=== PATIENT | male | born 1965 | race African-American/Black ===

== ENCOUNTER 2018-01-24 01:38 | Emergency (ER) | payer OTHER ==
--- NOTE | 2018-01-24 02:08 | PDOC ---
History of Present Illness - General History Source: Patient, Parent(s) (Mother) Exam Limitations: No Limitations - History of Present Illness Initial Comments: 01/24/18 03:45 The patient is a 52 year old male, with a significant past medical history of Pre-Diabetes, Cardiac Disorder, HTN who presents to the emergency department seen immediately upon arrival with worsening SOB and LLE edema for the past 4 days. Patient reports SOB has worsened today and is unable to lay flat. Patient also notes LLE edema for the past 2 days. Patient is a daily smoker and is mostly sedentary. Patient denies recent travel, recent surgeries, hx of PE or DVT in the past or family hx of blood clotting disorders. Note, patient reports recent cold that he is recovering from. Patient has not seen his PCP in 2 years. Upon evaluation, patient's vital signs significant for 123 HR. Patient denies headache or dizziness. Patient denies fever, chills, abdominal pain, nausea, vomit, diarrhea or constipation. Patient denies dysuria, frequency, urgency or hematuria. Patient denies sick contacts Allergies: NKA Past surgical history: None Social history: Current everyday smoker PCP: None <Penny Pete - Last Filed: 01/24/18 06:25> <Graciela Lowe - Last Filed: 01/24/18 07:31> - General Chief Complaint: Shortness of Breath Stated Complaint: SWELLING LT SIDE,SOB Time Seen by Provider: 01/24/18 02:07 Past History <Penny Pete - Last Filed: 01/24/18 06:25> - Past Medical History Cardiac Disorders: Yes (2 DAMAGED VALVES. ABN HEART SOUNDS) CHF: Yes Diabetes: Yes (borderline) HTN: Yes - Immunization History Immunization Up to Date: Yes - Suicide/Smoking/Psychosocial Hx Smoking Status: No Smoking History: Current every day smoker Number of Cigarettes Smoked Daily: 3 'Breaking Loose' booklet given: 06/02/15 Hx Alcohol Use: Yes (now and then) Drug/Substance Use Hx: No Substance Use Type: None <Graciela Lowe - Last Filed: 01/24/18 07:31> - Past Medical History Allergies/Adverse Reactions: Allergies Allergy/AdvReac Type Severity Reaction Status Date / Time No Known Allergies Allergy Verified 01/24/18 02:41 Home Medications: Ambulatory Orders NK [No Known Home Medication] 01/24/18 Review of Systems - Review of Systems Able to Perform ROS?: Yes Comments:: 01/24/18 03:45 CONSTITUTIONAL: Absent: fever, no chills, no fatigue EYES: Absent: visual changes ENT: Absent: ear pain, no sore throat CARDIOVASCULAR: Absent: chest pain, no palpitations RESPIRATORY: +SOB Absent: cough GI: Absent: abdominal pain, no nausea, no vomiting, no constipation, no diarrhea GENITOURINARY: Absent: dysuria, no frequency, no hematuria MUSCULOSKELETAL: +LLE edema. Absent: back pain, no arthralgia, no myalgia SKIN: Absent: rash NEURO: Absent: headache <Penny Pete - Last Filed: 01/24/18 06:25> *Physical Exam - Vital Signs Last Vital Signs Temp Pulse Resp BP Pulse Ox 97.4 F L 123 H 18 154/81 96 01/24/18 01:50 01/24/18 01:50 01/24/18 01:50 01/24/18 01:50 01/24/18 01:50 <Penny Pete - Last Filed: 01/24/18 06:25> - Physical Exam General Appearance: Yes: Nourished, Appropriately Dressed, Apparent Distress ( mild respiratory distress) HEENT: positive: SASHA, Normal Voice, Symmetrical Neck: positive: Trachea midline Respiratory/Chest: positive: Lungs Clear. negative: Chest Tender, Crackles, Rales, Rhonchi, Wheezing Cardiovascular: positive: Regular Rhythm, Tachycardia Gastrointestinal/Abdominal: positive: Normal Bowel Sounds, Soft Musculoskeletal: positive: Normal Inspection Extremity: positive: Swelling, Calf Tenderness, Other (+ swelling to L calf, 3cm greater circumference than R calf). negative: Erythema Neurologic: positive: Fully Oriented, Alert <Graciela Lowe - Last Filed: 01/24/18 07:31> ED Treatment Course - LABORATORY CBC & Chemistry Diagram: 01/24/18 02:10 01/24/18 02:10 - ADDITIONAL ORDERS Additional order review: Laboratory Results 01/24/18 01/24/18 01/24/18 02:10 02:10 02:10 PT with INR INR PTT (Actin FS) VBG pH 7.42 POC VBG pCO2 37.2 L POC VBG pO2 44.1 Mixed VBG HCO3 23.6 Sodium Cancelled 138 Potassium Cancelled 4.4 Chloride Cancelled 104 Carbon Dioxide Cancelled 26 Anion Gap Cancelled 8 BUN Cancelled 21 H Creatinine Cancelled 1.5 H D Creat Clearance w eGFR Cancelled 49.54 Random Glucose Cancelled 272 H D Calcium Cancelled 8.3 L Total Bilirubin Cancelled 0.8 AST Cancelled 16 ALT Cancelled 20 Alkaline Phosphatase Cancelled 113 Creatine Kinase 311 H Creatine Kinase Index 0.8 CK-MB (CK-2) 2.594 Troponin I 0.04 B-Natriuretic Peptide 2261.77 H Total Protein Cancelled 7.4 Albumin Cancelled 3.2 L 01/24/18 02:10 PT with INR 14.40 H INR 1.27 H PTT (Actin FS) 29.7 VBG pH POC VBG pCO2 POC VBG pO2 Mixed VBG HCO3 Sodium Potassium Chloride Carbon Dioxide Anion Gap BUN Creatinine Creat Clearance w eGFR Random Glucose Calcium Total Bilirubin AST ALT Alkaline Phosphatase Creatine Kinase Creatine Kinase Index CK-MB (CK-2) Troponin I B-Natriuretic Peptide Total Protein Albumin 01/24/18 02:10 RBC 3.84 L MCV 81.0 MCHC 32.4 RDW 15.8 D MPV 8.2 Neutrophils % 63.2 Lymphocytes % 27.2 Monocytes % 8.7 Eosinophils % 0.5 Basophils % 0.4 - Medications Given in the ED: ED Medications Discontinued Medications Generic Name Dose Route Start Last Admin Trade Name Freq PRN Reason Stop Dose Admin Enoxaparin Sodium 100 mg 01/24/18 02:10 01/24/18 03:33 Lovenox - SQ 01/24/18 02:11 Not Given ONCE ONE <Penny Pete - Last Filed: 01/24/18 06:25> - LABORATORY CBC & Chemistry Diagram: 01/24/18 02:10 01/24/18 02:10 <Graciela Lowe - Last Filed: 01/24/18 07:31> Medical Decision Making - Medical Decision Making 01/24/18 06:16 CT Chest Report from [facility] Referring Physician: CARI BARON Patient Name: ERASMO ANGEL THIS IS A PRELIMINARY REPORT FROM [facility] DATE OF SERVICE: 2018-01-24 03:05:10 IMAGES: [id number] EXAM: CTA CHEST Bilateral ground glass and nodular densities, correlate clinically for atypical infection and advise followup after treatment. Largest nodule 8 mm in right lower lobe. No pulmonary embolism. No aortic dissection or aneurysm. No pleural effusions. Mediastinal lymphadenopathy, indeterminate. Coronary artery disease. Cardiomegaly. Trace pericardial effusion. Contrast reflux into enlarged hepatic veins, which could be due to right heart dysfunction. Name: STANLEY ZIMMERMAN Sex: M Study Description: CT CTA CHEST Modality: CT [facility] Referring Physician: CARI BARON Fat haziness around pancreatic head, correlate with pancreatic enzymes. Nonspecific pericholecystic fluid and/or moderate gallbladder wall thickening, but no dilatation of visualized gallbladder lumen. Punctate stone left kidney. THIS DOCUMENT HAS BEEN ELECTRONICALLY SIGNED Anita Alfonso M.D. <Penny Pete - Last Filed: 01/24/18 06:25> - Medical Decision Making 01/24/18 03:20 Pt seen on arrival. +dyspnea x4d, reasonably sudden onset. Also LLE swelling x same duration. Pt lives sedentary lifestyle, sometimes spends all day sitting at home without moving much. No known hx of VTE. HR 125, lungs clear, SOB on exam. No chest pain, no abd pain. Diameter of L calf is 3cm larger than R calf. Attempted bedside US to eval for DVT but unfortunately US probe is not functioning properly so I'm unable to complete the study. Strongly suspect DVT/ PE. Will treat empirically with heparin bolus/gtt and CTA chest to eval for PE. EKG is nonischemic. - labs including troponin - CT chest with IV contrast r/o PE - heparin gtt 01/24/18 03:25 Pt has Cr of 1.5. Based on the pt's clinical condition and necessity to diagnose possible life threatening condition, will proceed with CT with IV contrast. Pt informed of this and signed a consent form agreeing to contrast injection. 01/24/18 07:23 Pt's tachycardia and SOB has improved. Pt is apprehensive to be admitted. Pending duplex at 8am. Depending on results, can readress admission with pt but he would definitely be an AMA discharge based on his initial presentation. Spoke to Dr. York. <Graciela Lowe - Last Filed: 01/24/18 07:31> *DC/Admit/Observation/Transfer - Attestations Scribe Attestion: 03/20/18 03:45 Documentation prepared by Penny Pete, acting as medical assisting program director for Graciela Lowe DO <Penny Pete - Last Filed: 01/24/18 06:25> - Discharge Dispostion Admit: Yes <Graciela Lowe - Last Filed: 01/24/18 07:31> Diagnosis at time of Disposition: Dyspnea
[2018-01-24] MEDS ORDERED: ENOXAPARIN NA (PORCINE) 100 MG/1 ML DISP.SYRIN SQ ONE ×2 (02:10→02:35)
[2018-01-24 02:37] LABS: BASO % 0.4 % (0-2.0); EOS % 0.5 % (0-4.5); HEMATOCRIT 31.1 % (35.4-49); HEMOGLOBIN 10.1 GM/dL (11.7-16.9); LYMPH % 27.2 % (8-40); MCH 26.2 pg (25.7-33.7); MCHC 32.4 g/dl (32.0-35.9); MEAN PLT VOLUME 8.2 fl (7.5-11.1); MONO % 8.7 % (3.8-10.2); NEUT % 63.2 % (42.8-82.8); PLATELET COUNT 320 K/MM3 (134-434); RBC 3.84 M/mm3 (4.00-5.60); RDW 15.8 % (11.9-15.9); WHITE BLOOD COUNT 7.1 K/mm3 (4.0-10.0)
[2018-01-24] MEDS ORDERED: HEPARIN NA (PORCINE) 5,000 UNITS/ML 1ML VIAL IVPUSH PRN ×2 (02:39→02:58)
[2018-01-24 02:41] VITALS: TEMP 97.4; BMI 31.0
[2018-01-24] MEDS ORDERED: HEPARIN INFUSION - 25,000 UNITS/500 ML INFUS.BAG IVPB SCH (02:45)
[2018-01-24 02:47] LABS: VENOUS PC02 37.2 mmHg (38-52); VENOUS PH 7.42 (7.32-7.42); VENOUS PO2 44.1 mmHg (28-48)
[2018-01-24 02:54] LABS: INR 1.27 (0.82-1.09); PROTHROMBIN TIME (PATIENT) 14.4 SEC (9.98-11.88)
[2018-01-24 02:57] LABS: ACTIVATED PTT 29.7 SECONDS (26.9-34.4)
[2018-01-24 03:06] LABS: ALBUMIN 3.2 g/dl (3.4-5.0); ANION GAP 8 (8-16); BILIRUBIN,TOTAL 0.8 mg/dL (0.2-1.0); BLOOD UREA NITROGEN 21 mg/dL (7-18); CALCIUM 8.3 mg/dL (8.5-10.1); CHLORIDE 104 mmol/L (98-107); CO2 26 mmol/L (21-32); CREATININE 1.5 mg/dL (0.7-1.3); GLUCOSE,RANDOM 272 mg/dL (74-106); POTASSIUM 4.4 mmol/L (3.5-5.1); SGOT/AST 16 U/L (15-37); SGPT/ALT 20 U/L (12-78); SODIUM 138 mmol/L (136-145); TOT PROT 7.4 g/dl (6.4-8.2)
[2018-01-24 03:08] LABS: ALK PHOS 113 U/L (45-117); N-TERMINAL BNP 2261.77 pg/ml (5-125)
[2018-01-24] MEDS ORDERED: HEPARIN NA (PORCINE) 5,000 UNITS/ML 1ML VIAL ONE (03:11)
[2018-01-24] MEDS ORDERED: HEPARIN INFUSION - 25,000 UNITS/500 ML INFUS.BAG IVPB ONE (03:11)
[2018-01-24] MEDS ORDERED: FUROSEMIDE 40 MG/4 ML INJECTABLE VIAL IVPUSH ONE (05:59)
[2018-01-24] MEDS ORDERED: FUROSEMIDE 40 MG/4 ML INJECTABLE VIAL ONE (06:43)
--- NOTE | 2018-01-24 10:24 | HP ---
CHIEF COMPLAINT: PCP: HISTORY OF PRESENT ILLNESS: PATIENT LEFT AMA PRIOR TO MY ARRIVAL. SEE ED NOTES ER course was notable for: (1) (2) (3) Recent Travel: PAST MEDICAL HISTORY: PAST SURGICAL HISTORY: Social History: Smoking: Alcohol: Drugs: Family History: Allergies No Known Allergies Allergy (Verified 01/24/18 02:41) HOME MEDICATIONS: Home Medications Medication Instructions Recorded NK [No Known Home Medication] 01/24/18 REVIEW OF SYSTEMS CONSTITUTIONAL: Absent: fever, chills, diaphoresis, generalized weakness, malaise, loss of appetite, weight change HEENT: Absent: rhinorrhea, nasal congestion, throat pain, throat swelling, difficulty swallowing, mouth swelling, ear pain, eye pain, visual changes CARDIOVASCULAR: Absent: chest pain, syncope, palpitations, irregular heart rate, lightheadedness , peripheral edema RESPIRATORY: Absent: cough, shortness of breath, dyspnea with exertion, orthopnea, wheezing, stridor, hemoptysis GASTROINTESTINAL: Absent: abdominal pain, abdominal distension, nausea, vomiting, diarrhea, constipation, melena, hematochezia GENITOURINARY: Absent: dysuria, frequency, urgency, hesitancy, hematuria, flank pain, genital pain MUSCULOSKELETAL: Absent: myalgia, arthralgia, joint swelling, back pain, neck pain SKIN: Absent: rash, itching, pallor HEMATOLOGIC/IMMUNOLOGIC: Absent: easy bleeding, easy bruising, lymphadenopathy, frequent infections ENDOCRINE: Absent: unexplained weight gain, unexplained weight loss, heat intolerance, cold intolerance NEUROLOGIC: Absent: headache, focal weakness or paresthesias, dizziness, unsteady gait, seizure, mental status changes, bladder or bowel incontinence PSYCHIATRIC: Absent: anxiety, depression, suicidal or homicidal ideation, hallucinations. PHYSICAL EXAMINATION Vital Signs - 24 hr 01/24/18 01/24/18 01:50 02:46 Temperature 97.4 F L Pulse Rate 123 H 112 H Respiratory 18 Rate Blood Pressure 154/81 O2 Sat by Pulse 96 97 Oximetry (%) GENERAL: Awake, alert, and fully oriented, in no acute distress. HEAD: Normal with no signs of trauma. EYES: Pupils equal, round and reactive to light, extraocular movements intact, sclera anicteric, conjunctiva clear. No lid lag. EARS, NOSE, THROAT: Ears normal, nares patent, oropharynx clear without exudates. Moist mucous membranes. NECK: Normal range of motion, supple without lymphadenopathy, JVD, or masses. LUNGS: Breath sounds equal, clear to auscultation bilaterally. No wheezes, and no crackles. No accessory muscle use. HEART: Regular rate and rhythm, normal S1 and S2 without murmur, rub or gallop. ABDOMEN: Soft, nontender, not distended, normoactive bowel sounds, no guarding, no rebound, no masses. No hepatomegaly or splenomegaly. MUSCULOSKELETAL: Normal range of motion at all joints. No bony deformities or tenderness. No CVA tenderness. UPPER EXTREMITIES: 2+ pulses, warm, well-perfused. No cyanosis. No clubbing. No peripheral edema. LOWER EXTREMITIES: 2+ pulses, warm, well-perfused. No calf tenderness. No peripheral edema. NEUROLOGICAL: Cranial nerves II-XII intact. Normal speech. Normal gait. PSYCHIATRIC: Cooperative. Good eye contact. Appropriate mood and affect. SKIN: Warm, dry, normal turgor, no rashes or lesions noted, normal capillary refill. Laboratory Results - last 24 hr 01/24/18 01/24/18 01/24/18 02:10 02:10 02:10 WBC 7.1 RBC 3.84 L Hgb 10.1 L Hct 31.1 L MCV 81.0 MCH 26.2 D MCHC 32.4 RDW 15.8 D Plt Count 320 MPV 8.2 Neutrophils % 63.2 Lymphocytes % 27.2 Monocytes % 8.7 Eosinophils % 0.5 Basophils % 0.4 PT with INR 14.40 H INR 1.27 H PTT (Actin FS) 29.7 VBG pH 7.42 POC VBG pCO2 37.2 L POC VBG pO2 44.1 Mixed VBG HCO3 23.6 Sodium Potassium Chloride Carbon Dioxide Anion Gap BUN Creatinine Creat Clearance w eGFR Random Glucose Calcium Total Bilirubin AST ALT Alkaline Phosphatase Creatine Kinase Creatine Kinase Index CK-MB (CK-2) Troponin I B-Natriuretic Peptide Total Protein Albumin Blood Type Antibody Screen 01/24/18 01/24/18 01/24/18 02:10 02:10 02:10 WBC RBC Hgb Hct MCV MCH MCHC RDW Plt Count MPV Neutrophils % Lymphocytes % Monocytes % Eosinophils % Basophils % PT with INR INR PTT (Actin FS) VBG pH POC VBG pCO2 POC VBG pO2 Mixed VBG HCO3 Sodium 138 Cancelled Potassium 4.4 Cancelled Chloride 104 Cancelled Carbon Dioxide 26 Cancelled Anion Gap 8 Cancelled BUN 21 H Cancelled Creatinine 1.5 H D Cancelled Creat Clearance w eGFR 49.54 Cancelled Random Glucose 272 H D Cancelled Calcium 8.3 L Cancelled Total Bilirubin 0.8 Cancelled AST 16 Cancelled ALT 20 Cancelled Alkaline Phosphatase 113 Cancelled Creatine Kinase 311 H Creatine Kinase Index 0.8 CK-MB (CK-2) 2.594 Troponin I 0.04 B-Natriuretic Peptide 2261.77 H Total Protein 7.4 Cancelled Albumin 3.2 L Cancelled Blood Type A POSITIVE Antibody Screen Negative ASSESSMENT/PLAN: Visit type - Emergency Visit Emergency Visit: Yes Care time: The patient presented to the Emergency Department on the above date and was hospitalized for further evaluation of their emergent condition. - New Patient This patient is new to me today: Yes Date on this admission: 01/24/18 - Critical Care Critical Care patient: No Hospitalist Screening - Colonoscopy Questionnaire Colonoscopy Questionnaire: Colonoscopy Questionnaire - Patient: 50 - 75 years old and never had a screening colonoscopy: No History of colon or rectal polyps, or CA: No History of IBD, Crohn's disease or UC: No History of abdominal radiation therapy as a child: No - Relative: 1 with colon or rectal CA, or polyps at age 60 or younger: No Colon or rectal CA diagnosed at age 45 or younger: No Multiple relatives with colon or rectal CA: No - Outcome: Screening Result: Negative Screen
--- NOTE | 2018-01-24 10:42 | PDOC ---
*Physical Exam - Vital Signs Last Vital Signs Temp Pulse Resp BP Pulse Ox 97.4 F L 112 H 18 154/81 97 01/24/18 01:50 01/24/18 02:46 01/24/18 01:50 01/24/18 01:50 01/24/18 02:46 - Physical Exam Comments: 01/24/18 10:37 Alert seated in stretcher speaking full sentences Exam is unchanged but heart rate improved at 95, states he feels fine and wants to go home ED Treatment Course - LABORATORY CBC & Chemistry Diagram: 01/24/18 02:10 01/24/18 02:10 - ADDITIONAL ORDERS Additional order review: Laboratory Results 01/24/18 01/24/18 01/24/18 02:10 02:10 02:10 PT with INR INR PTT (Actin FS) VBG pH POC VBG pCO2 POC VBG pO2 Mixed VBG HCO3 Sodium Cancelled 138 Potassium Cancelled 4.4 Chloride Cancelled 104 Carbon Dioxide Cancelled 26 Anion Gap Cancelled 8 BUN Cancelled 21 H Creatinine Cancelled 1.5 H D Creat Clearance w eGFR Cancelled 49.54 Random Glucose Cancelled 272 H D Calcium Cancelled 8.3 L Total Bilirubin Cancelled 0.8 AST Cancelled 16 ALT Cancelled 20 Alkaline Phosphatase Cancelled 113 Creatine Kinase 311 H Creatine Kinase Index 0.8 CK-MB (CK-2) 2.594 Troponin I 0.04 B-Natriuretic Peptide 2261.77 H Total Protein Cancelled 7.4 Albumin Cancelled 3.2 L Blood Type A POSITIVE Antibody Screen Negative 01/24/18 01/24/18 02:10 02:10 PT with INR 14.40 H INR 1.27 H PTT (Actin FS) 29.7 VBG pH 7.42 POC VBG pCO2 37.2 L POC VBG pO2 44.1 Mixed VBG HCO3 23.6 Sodium Potassium Chloride Carbon Dioxide Anion Gap BUN Creatinine Creat Clearance w eGFR Random Glucose Calcium Total Bilirubin AST ALT Alkaline Phosphatase Creatine Kinase Creatine Kinase Index CK-MB (CK-2) Troponin I B-Natriuretic Peptide Total Protein Albumin Blood Type Antibody Screen 01/24/18 02:10 RBC 3.84 L MCV 81.0 MCHC 32.4 RDW 15.8 D MPV 8.2 Neutrophils % 63.2 Lymphocytes % 27.2 Monocytes % 8.7 Eosinophils % 0.5 Basophils % 0.4 - Medications Given in the ED: ED Medications Discontinued Medications Generic Name Dose Route Start Last Admin Trade Name Olu PRN Reason Stop Dose Admin Enoxaparin Sodium 100 mg 01/24/18 02:10 01/24/18 03:33 Lovenox - SQ 01/24/18 02:11 Not Given ONCE ONE Furosemide 40 mg 01/24/18 05:59 01/24/18 07:07 Lasix Injection - IVPUSH 01/24/18 06:00 40 mg ONCE ONE Administration Heparin Sodium (Porcine) 5,000 unit 01/24/18 02:39 01/24/18 03:33 Heparin - IVPUSH 5,000 unit PRN PRN Administration Heparin Medical Decision Making - Medical Decision Making 01/24/18 10:37 Received signout on this 52-year-old male with history of CHF, noncompliant with his medications who presented with shortness of breath and leg swelling. Workup surrounded likely CHF exacerbation but rule out PE as well. The patient was empirically started on heparin given presenting Tachycardia, but CTA of chest was normal. Troponin showed creatinine of 1.5, elevated BNP, negative troponin. Patient had expressed unwillingness to stay in the hospital and was planning to sign out AGAINST MEDICAL ADVICE. Plan at sign out was to follow up bilateral Dopplers, reassess for admission, and disposition accordingly. Dopplers negative for DVT. Heparin stopped. Despite full review of entire spectrum of risk, patient still wants to sign out AGAINST MEDICAL ADVICE. He will contact his PCP, but we also discussed more expedited appointment throughout clinic system. He is fully aware of strict return precautions, his is at bedside and agrees with his plan. *DC/Admit/Observation/Transfer Diagnosis at time of Disposition: Dyspnea Qualifiers: Dyspnea type: unspecified Qualified Code(s): R06.00 - Dyspnea, unspecified CHF (congestive heart failure) Qualifiers: Heart failure type: unspecified Heart failure chronicity: unspecified Qualified Code(s): I50.9 - Heart failure, unspecified - Discharge Dispostion Disposition: AGAINST MEDICAL ADVICE Condition at time of disposition: Fair - Prescriptions Prescriptions: Furosemide [Lasix] 40 mg PO DAILY #10 tablet - Referrals Referrals: Yony Singh MD [Staff Physician] - - Patient Instructions Printed Discharge Instructions: DI for Heart Failure Additional Instructions: Activity as tolerated. Stay hydrated. As discussed, your symptoms and workup are most concerning for heart failure with fluid buildup. We advised admission to the hospital for further management and cardiac workup, but you have opted to do this as an outpatient. Continue your medications as previously prescribed by your physician. Restart Lasix as prescribed. You should follow up with your primary doctor as soon as possible regarding today's emergency department visit. You can obtain a rapid visit in our medical clinic by calling Dr. Singh for an appointment, you should be seen within 24-48 hours Return to the emergency department for any new or concerning symptoms, particularly chest pain or persistent palpitations, difficulty breathing, fever/ chills, weakness or lightheadedness. - Post Discharge Activity
[2018-01-24 11:51] VITALS: BP 148/68; PULSE 97
--- NOTE | 2018-01-24 13:22 | DS ---
Physical Exam: SUBJECTIVE: Patient seen and examined OBJECTIVE: PATIENT LEFT AMA PRIOR TO MY ARRIVAL, SEEN BY ED PHYSICIAN. Vital Signs Period Temp Pulse Resp BP Sys/[place] Pulse Ox Last 24 Hr 97.4 F 97-123 18-18 148-154/68-81 96-99 PHYSICAL EXAM GENERAL: The patient is awake, alert, and fully oriented, in no acute distress. HEAD: Normal with no signs of trauma. EYES: PERRL, extraocular movements intact, sclera anicteric, conjunctiva clear. ENT: Ears normal, nares patent, oropharynx clear without exudates, moist mucous membranes. NECK: Trachea midline, full range of motion, supple. LUNGS: Breath sounds equal, clear to auscultation bilaterally, no wheezes, no crackles, no accessory muscle use. HEART: Regular rate and rhythm, S1, S2 without murmur, rub or gallop. ABDOMEN: Soft, nontender, nondistended, normoactive bowel sounds, no guarding, no rebound, no hepatosplenomegaly, no masses. EXTREMITIES: 2+ pulses, warm, well-perfused, no edema. NEUROLOGICAL: Cranial nerves II through XII grossly intact. Normal speech, gait not observed. PSYCH: Normal mood, normal affect. SKIN: Warm, dry, normal turgor, no rashes or lesions noted. LABS Laboratory Results - last 24 hr 01/24/18 01/24/18 01/24/18 02:10 02:10 02:10 WBC 7.1 RBC 3.84 L Hgb 10.1 L Hct 31.1 L MCV 81.0 MCH 26.2 D MCHC 32.4 RDW 15.8 D Plt Count 320 MPV 8.2 Neutrophils % 63.2 Lymphocytes % 27.2 Monocytes % 8.7 Eosinophils % 0.5 Basophils % 0.4 PT with INR 14.40 H INR 1.27 H PTT (Actin FS) 29.7 VBG pH 7.42 POC VBG pCO2 37.2 L POC VBG pO2 44.1 Mixed VBG HCO3 23.6 Sodium Potassium Chloride Carbon Dioxide Anion Gap BUN Creatinine Creat Clearance w eGFR Random Glucose Calcium Total Bilirubin AST ALT Alkaline Phosphatase Creatine Kinase Creatine Kinase Index CK-MB (CK-2) Troponin I B-Natriuretic Peptide Total Protein Albumin Blood Type Antibody Screen 01/24/18 01/24/18 01/24/18 02:10 02:10 02:10 WBC RBC Hgb Hct MCV MCH MCHC RDW Plt Count MPV Neutrophils % Lymphocytes % Monocytes % Eosinophils % Basophils % PT with INR INR PTT (Actin FS) VBG pH POC VBG pCO2 POC VBG pO2 Mixed VBG HCO3 Sodium 138 Cancelled Potassium 4.4 Cancelled Chloride 104 Cancelled Carbon Dioxide 26 Cancelled Anion Gap 8 Cancelled BUN 21 H Cancelled Creatinine 1.5 H D Cancelled Creat Clearance w eGFR 49.54 Cancelled Random Glucose 272 H D Cancelled Calcium 8.3 L Cancelled Total Bilirubin 0.8 Cancelled AST 16 Cancelled ALT 20 Cancelled Alkaline Phosphatase 113 Cancelled Creatine Kinase 311 H Creatine Kinase Index 0.8 CK-MB (CK-2) 2.594 Troponin I 0.04 B-Natriuretic Peptide 2261.77 H Total Protein 7.4 Cancelled Albumin 3.2 L Cancelled Blood Type A POSITIVE Antibody Screen Negative HOSPITAL COURSE: Date of Admission:01/24/18 Date of Discharge: 01/24/18 Minutes to complete discharge: 20 Discharge Summary Reason For Visit: DYSPNEA Condition: Fair - Instructions Diet, Activity, Other Instructions: Activity as tolerated. Stay hydrated. As discussed, your symptoms and workup are most concerning for heart failure with fluid buildup. We advised admission to the hospital for further management and cardiac workup, but you have opted to do this as an outpatient. Continue your medications as previously prescribed by your physician. Restart Lasix as prescribed. You should follow up with your primary doctor as soon as possible regarding today's emergency department visit. You can obtain a rapid visit in our medical clinic by calling Dr. Singh for an appointment, you should be seen within 24-48 hours Return to the emergency department for any new or concerning symptoms, particularly chest pain or persistent palpitations, difficulty breathing, fever/ chills, weakness or lightheadedness. Referrals: Yony Singh MD [Staff Physician] - Disposition: AGAINST MEDICAL ADVICE - Home Medications Comprehensive Discharge Medication List: Ambulatory Orders Furosemide [Lasix] 40 mg PO DAILY #10 tablet 01/24/18 This patient is new to me today: Yes Date on this admission: 01/24/18 Emergency Visit: Yes Care time: The patient presented to the Emergency Department on the above date and was hospitalized for further evaluation of their emergent condition. Critical Care patient: No - Discharge Referral Referred to [facility] Med [facility].: No
--- NOTE | 2018-01-25 11:53 | EKG ---
Test Reason : Blood Pressure : / mmHG Vent. Rate : 125 BPM Atrial Rate : 125 BPM P-R Int : 140 ms QRS Dur : 098 ms QT Int : 326 ms P-R-T Axes : 077 -01 068 degrees QTc Int : 470 ms SINUS TACHYCARDIA POSSIBLE LEFT ATRIAL ENLARGEMENT BORDERLINE ECG WHEN COMPARED WITH ECG OF 02-JUN-2015 19:57, NO SIGNIFICANT CHANGE WAS FOUND Confirmed by OPAL KO MD ([id number]) on 01/25/2018 11:53:13 AM Referred By: Confirmed By:OPAL KO MD
== END 2018-01-24 11:51 | disposition left against medical advice (07) ==
LOC: JER 01:38 → JERBED 07:31 → UNDOADMIN 07:31 → UNDODISIN 10:40 → JER 11:51
PROC: 3E033GC Introduction of Other Therapeutic Substance into Peripheral Vein, Percutaneous Approach (ICD-10-PCS; principal; 2018-01-24)
PROC: 3E033GC Introduction of Other Therapeutic Substance into Peripheral Vein, Percutaneous Approach (ICD-10-PCS; 2018-01-24)
DX: I50.9 Heart failure, unspecified (principal); R06.00 Dyspnea, unspecified; I10 Essential (primary) hypertension; E11.9 Type 2 diabetes mellitus without complications; F17.210 Nicotine dependence, cigarettes, uncomplicated
CPT/HCPCS: 36415; 71045-TC-FY; 71275-TC; 80053; 82550; 82553; 82803; 83880; 84484; 85025; 85610; 85730; 86850; 86900; 86901; 93005; 93010; 93970-TC; 99284-25; J1644

== ENCOUNTER 2022-10-02 16:18 | Emergency (ER) | payer OTHER ==
[2022-10-02 16:37] VITALS: BMI 28.0
[2022-10-02] MEDS ORDERED: FAMOTIDINE 20 MG/50 ML IVPB 20 MG/50 ML MG IVPB ONE ×2 (20:11→20:52)
[2022-10-02] MEDS ORDERED: MAG HYDROX/AL HYDROX/SIMETH 30 ML UNIT-DOSE CUP PO ONE (20:11)
[2022-10-02] MEDS ORDERED: ONDANSETRON 4 MG/2 ML VIAL IVPB ONE (20:11)
[2022-10-02] MEDS ORDERED: ACETAMINOPHEN 1000 MG/100 ML BAG IVPB ONE (20:11)
[2022-10-02] MEDS ORDERED: MAGNESIUM CITRATE 300 ML BOTTLE PO ONE (20:12)
[2022-10-02 20:31] LABS: BASO % 0.4 % (0-2.0); HEMATOCRIT 39.7 % (35.4-49); HEMOGLOBIN 12.5 GM/dL (11.7-16.9); LYMPH % 16.7 % (8-40); MCH 27.9 pg (25.7-33.7); MCHC 31.4 g/dl (32.0-35.9); MEAN CELL VOLUME 88.7 fl (80-96); MEAN PLT VOLUME 9.2 fl (7.5-11.1); MONO % 14.6 % (3.8-10.2); NEUT % 68.3 % (42.8-82.8); PLATELET COUNT 209 10^3/uL (134-434); RBC 4.47 M/mm3 (4.00-5.60); RDW 15.9 % (11.9-15.9); WHITE BLOOD COUNT 12.9 K/mm3 (4.0-10.0)
[2022-10-02 20:35] LABS: CALCIUM 9.1 mg/dL (8.5-10.1); VENOUS BASE EXCESS -1.8 mmol/L (-2-2); VENOUS O2 SATURATION 36.2 % (70-80); VENOUS PCO2 41.3 mmHg (38-52); VENOUS PH 7.37 (7.310-7.410)
[2022-10-02 20:36] LABS: ALBUMIN 3.6 g/dl (3.4-5.0); BLOOD UREA NITROGEN 84.1 mg/dL (7-18)
[2022-10-02 20:37] LABS: INR 2.68 (0.83-1.09); PROTHROMBIN TIME (PATIENT) 31.1 SEC (9.7-13.0)
[2022-10-02 20:38] LABS: CREATININE 3.3 mg/dL (0.55-1.3)
[2022-10-02 20:40] LABS: ACTIVATED PTT 31.6 SECONDS (25.2-36.5); BILIRUBIN,TOTAL 3.9 mg/dL (0.2-1); TOT PROT 7.1 g/dl (6.4-8.2)
[2022-10-02] MEDS ORDERED: MAG HYDROX/AL HYDROX/SIMETH 30 ML UNIT-DOSE CUP ONE (20:52)
[2022-10-02] MEDS ORDERED: ONDANSETRON 4 MG/2 ML VIAL ONE (20:52)
[2022-10-02] MEDS ORDERED: ACETAMINOPHEN INJECTION 100 ML IVPB ONE (20:55)
[2022-10-02 21:28] LABS: LACTIC ACID 8.8 mmol/L (0.4-2.0)
[2022-10-02] MEDS ORDERED: dilTIAZem HCL 50 MG/10 ML - 10 ML VIAL IVPUSH ONE (22:43)
[2022-10-02] MEDS ORDERED: dilTIAZem HCL 125 MG/25 ML - 25 ML VIAL ONE (22:46)
[2022-10-02] MEDS ORDERED: AMIODARONE HCL 150 MG/3 ML VIAL IVPUSH ONE (22:53)
[2022-10-02] MEDS ORDERED: AMIODARONE HCL 150 MG/3 ML VIAL ONE (22:55)
[2022-10-02] MEDS ORDERED: SODIUM CHLORIDE 0.9% 500 ML INFUS.BAG IV ONE (23:09)
[2022-10-02] MEDS ORDERED: NOREPINEPHRINE BITARTRATE 4 MG/4 ML ML IV ONE (23:11)
[2022-10-02] MEDS ORDERED: NOREPINEPHRINE BITARTRATE 4,000 MCG in DEXTROSE 5%-WATER - 496 ML IV SCH (23:15)
[2022-10-02] MEDS ORDERED: AMIODARONE HCL INJECTION 150 MG in DEXTROSE 5%-WATER - 100 ML IVPB ONE (23:18)
[2022-10-02] MEDS ORDERED: VASOPRESSIN 40 UNITS/100 ML BAG IV SCH (23:45)
[2022-10-03 00:26] VITALS: RESP 20
[2022-10-03] MEDS ORDERED: DEXTROSE 5% IVPB ONE ×6 (01:00→06:45)
[2022-10-03] MEDS ORDERED: ACETYLCYSTEINE IVPB ONE ×6 (01:00→06:45)
[2022-10-03] MEDS ORDERED: WATER IVPB ONE ×6 (01:00→06:45)
[2022-10-03 01:24] LABS: VENOUS BASE EXCESS -5.2 mmol/L (-2-2); VENOUS O2 SATURATION 72.6 % (70-80); VENOUS PCO2 35.5 mmHg (38-52); VENOUS PH 7.358 (7.310-7.410)
[2022-10-03 01:27] VITALS: BP 89/76
[2022-10-03 01:51] LABS: ALBUMIN 3.3 g/dl (3.4-5.0); BLOOD UREA NITROGEN 82.6 mg/dL (7-18); CALCIUM 8.5 mg/dL (8.5-10.1); MAGNESIUM 2.9 mg/dL (1.8-2.4)
[2022-10-03 01:54] LABS: CREATININE 3.5 mg/dL (0.55-1.3); PHOSPHOROUS 6.8 mg/dL (2.5-4.9)
[2022-10-03 01:56] LABS: BILIRUBIN,TOTAL 4.1 mg/dL (0.2-1); TOT PROT 6.7 g/dl (6.4-8.2)
[2022-10-03 02:02] LABS: LACTIC ACID 9.7 mmol/L (0.4-2.0)
[2022-10-03 03:13] VITALS: PULSE 125; TEMP 98.8
== END 2022-10-03 03:17 | disposition short-term general hospital (02) ==
LOC: JER 16:18
PROC: 3E033GC Introduction of Other Therapeutic Substance into Peripheral Vein, Percutaneous Approach (ICD-10-PCS; principal; 2022-10-02)
PROC: 3E033GC Introduction of Other Therapeutic Substance into Peripheral Vein, Percutaneous Approach (ICD-10-PCS; 2022-10-02)
PROC: 3E033GC Introduction of Other Therapeutic Substance into Peripheral Vein, Percutaneous Approach (ICD-10-PCS; 2022-10-02)
PROC: 3E033GC Introduction of Other Therapeutic Substance into Peripheral Vein, Percutaneous Approach (ICD-10-PCS; 2022-10-02)
PROC: 3E033GC Introduction of Other Therapeutic Substance into Peripheral Vein, Percutaneous Approach (ICD-10-PCS; 2022-10-02)
PROC: 3E033GC Introduction of Other Therapeutic Substance into Peripheral Vein, Percutaneous Approach (ICD-10-PCS; 2022-10-02)
PROC: 3E033GC Introduction of Other Therapeutic Substance into Peripheral Vein, Percutaneous Approach (ICD-10-PCS; 2022-10-02)
PROC: 3E033GC Introduction of Other Therapeutic Substance into Peripheral Vein, Percutaneous Approach (ICD-10-PCS; 2022-10-02)
PROC: 3E033GC Introduction of Other Therapeutic Substance into Peripheral Vein, Percutaneous Approach (ICD-10-PCS; 2022-10-02)
PROC: 3E0333Z Introduction of Anti-inflammatory into Peripheral Vein, Percutaneous Approach (ICD-10-PCS; 2022-10-02)
DX: R06.02 Shortness of breath (principal); R10.13 Epigastric pain; R74.8 Abnormal levels of other serum enzymes
CPT/HCPCS: 0241U-QW; 36415; 71045-TC-FY; 71275-TC; 74177-TC; 80053; 80307; 82010; 82803; 83605; 83690; 83735; 83880; 84100; 84484; 85025; 85610; 85730; 93005; 93010; 99285-25; J3490

== ENCOUNTER 2024-09-04 04:07 | Emergency (ER) | payer OTHER ==
[2024-09-04 04:31] VITALS: TEMP 97.5; BMI 28.0
[2024-09-04] MEDS: SODIUM CHLORIDE 0.9% 500 ML INFUS.BAG IV ONE (05:41)
[2024-09-04 05:55] LABS: BASO % 0.9 % (0-2.0); HEMOGLOBIN 12.6 GM/dL (11.7-16.9); LYMPH % 14.8 % (8-40); MCH 27.4 pg (25.7-33.7); MCHC 31.6 g/dl (32.0-35.9); MEAN CELL VOLUME 86.7 fl (80-96); MEAN PLT VOLUME 8.2 fl (7.5-11.1); MONO % 11.3 % (3.8-10.2); PLATELET COUNT 207 10^3/uL (134-434); RBC 4.62 M/mm3 (4.00-5.60); RDW 17.7 % (11.9-15.9); WHITE BLOOD COUNT 10.1 K/mm3 (4.0-10.0)
[2024-09-04 06:08] LABS: INR 2.38 (0.83-1.09); PROTHROMBIN TIME (PATIENT) 26.2 SEC (9.7-13.0)
[2024-09-04 06:11] LABS: ACTIVATED PTT 35.3 SECONDS (25.2-36.5)
[2024-09-04 06:20] LABS: CALCIUM 9.4 mg/dL (8.5-10.1); CHLORIDE 85 mmol/L (98-107); SODIUM 128 mmol/L (136-145)
[2024-09-04 06:21] LABS: ALBUMIN 3.4 g/dl (3.4-5.0); ANION GAP 22 mmol/L (4-13); BLOOD UREA NITROGEN 90.7 mg/dL (7-18); CO2 22 mmol/L (21-32); GLUCOSE,RANDOM 158 mg/dL (74-106); MAGNESIUM 2.2 mg/dL (1.8-2.4); POTASSIUM 6.1 mmol/L (3.5-5.1)
[2024-09-04 06:23] LABS: SGOT/AST 781 U/L (15-37)
[2024-09-04 06:24] LABS: SGPT/ALT 558 U/L (13-61)
[2024-09-04 06:26] LABS: TOT PROT 7.5 g/dl (6.4-8.2)
[2024-09-04 06:27] LABS: ALK PHOS 154 U/L (45-117)
[2024-09-04 06:32] LABS: LACTIC ACID 8.3 mmol/L (0.4-2.0)
[2024-09-04 06:59] VITALS: RESP 18
[2024-09-04] MEDS: ESMOLOL 2500 MG/250 ML 2,500,000 MCG/250 ML INFUS.BAG IVPB SCH (07:00)
[2024-09-04] MEDS ORDERED: ONDANSETRON 4 MG/2 ML VIAL ONE (07:24)
[2024-09-04] MEDS: SODIUM CHLORIDE 500 ML IV STA (07:28)
[2024-09-04 07:40] VITALS: BP 99/66; PULSE 102
[2024-09-04] MEDS: ONDANSETRON 4 MG/2 ML VIAL IVPUSH ONE (07:47)
[2024-09-04 08:47] LABS: CHLORIDE 86 mmol/L (98-107); SODIUM 127 mmol/L (136-145)
[2024-09-04 08:48] LABS: BLOOD UREA NITROGEN 94.8 mg/dL (7-18); CALCIUM 8.8 mg/dL (8.5-10.1); CO2 19 mmol/L (21-32)
[2024-09-04 08:49] LABS: GLUCOSE,RANDOM 136 mg/dL (74-106)
[2024-09-04 08:56] LABS: N-TERMINAL BNP 5984.1 pg/ml (5-125)
[2024-09-04 09:04] LABS: ANION GAP 22 mmol/L (4-13); CREATININE 8.7 mg/dL (0.55-1.3); POTASSIUM 7.1 mmol/L (3.5-5.1)
== END 2024-09-04 07:30 | disposition short-term general hospital (02) ==
LOC: JER 04:07
PROC: 3E033GC Introduction of Other Therapeutic Substance into Peripheral Vein, Percutaneous Approach (ICD-10-PCS; principal; 2024-09-04)
PROC: 3E0337Z Introduction of Electrolytic and Water Balance Substance into Peripheral Vein, Percutaneous Approach (ICD-10-PCS; 2024-09-04)
DX: R11.2 Nausea with vomiting, unspecified (principal); R10.13 Epigastric pain; R63.0 Anorexia; I11.0 Hypertensive heart disease with heart failure; I50.9 Heart failure, unspecified; N19 Unspecified kidney failure; K72.90 Hepatic failure, unspecified without coma; R53.1 Weakness; Z20.822 Contact with and (suspected) exposure to COVID-19
CPT/HCPCS: 0241U-QW; 36415; 71045-TC-FY; 80048; 80053; 83605; 83690; 83735; 83880; 84484; 85025; 85610; 85730; 93005; 93010; 99285-25